=== PATIENT | female | born 1995 | race American Indian/Alaskan Native ===

== ENCOUNTER 2020-08-21 17:57 | Emergency (ER) | payer SELFPAY ==
[2020-08-21] MEDS ORDERED: FAMOTIDINE 20 MG/2 ML INJ IV ONE (18:29)
--- NOTE | 2020-08-21 18:43 | Emergency Department Report ---
ED Allergic Reaction HPI - General Chief complaint: Allergic Reaction Stated complaint: ALLERGIC REACTION Time Seen by Provider: 08/21/20 18:22 Source: patient, EMS Mode of arrival: Stretcher Limitations: No Limitations - History of Present Illness Initial Comments: Chief complaint: " may have had an allergic reaction to shrimp." HPI: This is a 25-year-old female without significant past medical history who presents with tongue and lip swelling hives all over after eating shrimp. Patient was treated and transported by EMS. She received Decadron and Benadryl in route. Patient symptoms have markedly improved. She denies feeling faint. She denies nausea vomiting. No previous reaction to food. She has allergy to azithromycin. She denies difficulty with swallowing. She denies throat tightness. 2 years ago patient required ED evaluation for allergic reaction. Patient had similar symptoms developed while outside running. Unknown allergen which cause the reaction. Patient was provided EpiPen at that time. She no longer has EpiPen in her possession. She did not receive allergy testing. MD Complaint: allergic reaction, hives, facial swelling -: Sudden, This evening Exposure: food (This occurred while eating shrimp) Symptoms: rash, itching, lip swelling Severity: severe Treatment Prior to Arrival: benadryl, steroids Previous Allergy History: none - Related Data Previous Rx's Medication Instructions Recorded Last Taken Type Cetirizine HCl [All Day Allergy 10 mg PO DAILY 30 Days #30 capsule 08/21/20 Unknown Rx Relief] EPINEPHrine [Epipen] 0.3 mg IJ ONCE PRN #1 auto.injct 08/21/20 Unknown Rx Famotidine [Acid Controller] 1 tab PO BID 3 Days #6 tablet 08/21/20 Unknown Rx predniSONE [Deltasone] 3 tab PO QDAY 3 Days #9 tab 08/21/20 Unknown Rx Allergies Allergy/AdvReac Type Severity Reaction Status Date / Time azithromycin [From Zithromax] Allergy Unknown Verified 08/21/20 18:30 ED Review of Systems ROS: Stated complaint: ALLERGIC REACTION Other details as noted in HPI Comment: All other systems reviewed and negative Constitutional: denies: fever, malaise Respiratory: denies: shortness of breath Cardiovascular: denies: chest pain Gastrointestinal: denies: abdominal pain, nausea, vomiting Skin: rash, lesions ED Past Medical Hx - Past Medical History Previous Medical History?: No - Surgical History Past Surgical History?: No - Social History Smoking Status: Never Smoker Substance Use Type: Alcohol - Medications Home Medications: Home Medications Medication Instructions Recorded Confirmed Last Taken Type Cetirizine HCl [All Day Allergy 10 mg PO DAILY 30 Days #30 capsule 08/21/20 Unknown Rx Relief] EPINEPHrine [Epipen] 0.3 mg IJ ONCE PRN #1 auto.injct 08/21/20 Unknown Rx Famotidine [Acid Controller] 1 tab PO BID 3 Days #6 tablet 08/21/20 Unknown Rx predniSONE [Deltasone] 3 tab PO QDAY 3 Days #9 tab 08/21/20 Unknown Rx ED Physical Exam - General Limitations: No Limitations General appearance: alert, in no apparent distress, other (Small urticaria involving cheeks) - Head Head exam: Present: atraumatic, normocephalic - Eye Eye exam: Present: normal appearance - ENT ENT exam: Present: mucous membranes moist, other (Normal tongue lip size. No soft palatal swelling. Normal uvula.) - Neck Neck exam: Present: normal inspection, full ROM - Respiratory Respiratory exam: Present: normal lung sounds bilaterally. Absent: respiratory distress - Cardiovascular Cardiovascular Exam: Present: regular rate, normal rhythm. Absent: systolic murmur, diastolic murmur, rubs, gallop - GI/Abdominal GI/Abdominal exam: Present: soft, normal bowel sounds - Extremities Exam Extremities exam: Present: normal inspection - Back Exam Back exam: Present: normal inspection - Neurological Exam Neurological exam: Present: alert, oriented X3 - Psychiatric Psychiatric exam: Present: normal affect, normal mood - Skin Skin exam: Present: warm, dry, intact, normal color. Absent: rash ED Course Vital Signs 08/21/20 08/21/20 08/21/20 18:15 18:16 18:30 Temperature 98.6 F Pulse Rate 77 82 78 Respiratory 15 16 17 Rate Blood Pressure 117/72 100/56 Blood Pressure 117/72 [Right] O2 Sat by Pulse 99 100 100 Oximetry 08/21/20 19:36 Temperature Pulse Rate 85 Respiratory 15 Rate Blood Pressure Blood Pressure 95/49 [Right] O2 Sat by Pulse 100 Oximetry - Reevaluation(s) Reevaluation #1: 08/21/20 19:54 I reassessed patient. She did not have any symptoms. She did not have any skin lesions. Normal lip and tongue size. However patient had persistent hypotension. I am concerned for anaphylactic shock. Patient received IV fluid bolus as well as epinephrine subcutaneous. 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 Patient received H2 antagonist famotidine in the emergency department. Once hypotension ensued, patient received epinephrine subcutaneous as well as IV fluid bolus. I have provided extensive verbal and written education regarding anaphylaxis and anaphylactic shock. She understands the upmost need to keep her EpiPen at her side at all times. I highly encouraged evaluation by institute scientist. Also gave verbal education regarding the use of epinephrine pen. I encouraged her to avoid shellfish until she receives allergy testing. She was referred to outpatient medicine physician as well as institute scientist. Prescriptions provided include EpiPen, prednisone, famotidine and cetirizine. Cetirizine was prescribed for 30 days.. Critical care time in (mins) excluding proc time.: 40 Critical care attestation.: If time is entered above; I have spent that time in minutes in the direct care of this critically ill patient, excluding procedure time. 40 minutes of critical care time excluding procedures were used in the care of the patient. I came immediately to the bedside upon patient's arriva to treatment room l. I obtained history from intake nurse. I discussed treatment plan with the nursing team members. I reviewed electronic record. I was concerned for circulatory collapse and airway compromise. I was concerned for anaphylaxis and anaphylactic shock. Patient required multiple interventions and reassessments. ED Disposition Clinical Impression: Anaphylactic reaction due to shellfish (crustaceans), initial encounter, Anaphylactic shock due to crustaceans Disposition: DC-01 TO HOME OR SELFCARE Is pt being admited?: No Does the pt Need Aspirin: No Condition: Stable Instructions: How to Use an Auto-Injector Pen, Anaphylactic Reaction, Adult, [id number] Prescriptions: Famotidine [Acid Controller] 1 tab PO BID 3 Days #6 tablet Cetirizine HCl [All Day Allergy Relief] 10 mg PO DAILY 30 Days #30 capsule predniSONE [Deltasone] 3 tab PO QDAY 3 Days #9 tab EPINEPHrine [Epipen] 0.3 mg IJ ONCE PRN #1 auto.injct PRN Reason: severe allergic reaction Referrals: MAKSIM OLIVO MD [Staff Physician] - 3-5 Days SHADI LAM MD [Referring] - 3-5 Days SRINIVASAN PEREZ MD [Referring] - 3-5 Days KRISTEN CASANOVA MD [Referring] - 3-5 Days
[2020-08-21] MEDS ORDERED: EPINEPHrine/PF 1 MG/1 ML INJ SUB-Q ONE (19:51)
[2020-08-21] MEDS ORDERED: SODIUM CHLORIDE 0.9% 1000 ML 1,000 ML IV ONE (19:55)
[2020-08-21 23:24] VITALS: BP 104/61
== END 2020-08-22 00:29 | disposition home or self-care (01) ==
LOC: ED 17:57
DX: T78.02XA Anaphylactic reaction due to shellfish (crustaceans), initial encounter (principal); Z79.899 Other long term (current) drug therapy; Z88.1 Allergy status to other antibiotic agents; Y92.89 Other specified places as the place of occurrence of the external cause
CPT/HCPCS: 96361; 96372; 96374; 99283; J0171; J7030